=== PATIENT | female | born 2000 | race Caucasian/White ===

== ENCOUNTER 2024-07-29 00:03 | Emergency (ER) | payer MEDICAID ==
[2024-07-29] MEDS ORDERED: methylPREDNISolone Sodium Succinate 40 MG/1 ML SDV IVPUSH ONE (00:29)
[2024-07-29] MEDS ORDERED: Lactated Ringers 1,000 ML IV ONE (00:29)
[2024-07-29 00:41] LABS: APPEARANCE,URINE CLEAR (CLEAR); BILIRUBIN,URINE NEGATIVE (NEGATIVE); COLOR,URINE YELLOW (YELLOW); GLUCOSE,URINE NEGATIVE (NEGATIVE); KETONES,URINE NEGATIVE (NEGATIVE); LEUKOCYTE ESTERASE,URINE TRACE (NEGATIVE); NITRITE,URINE NEGATIVE (NEGATIVE); OCCULT BLOOD,URINE NEGATIVE (NEGATIVE); PH,URINE 7.5 (5.0-9.0); PROTEIN,URINE 30 (NEGATIVE)
[2024-07-29 01:29] LABS: BACTERIA,URINE FEW /HPF (0-FEW/HPF); MUCUS,URINE FEW /LPF (NOT SEEN); RBC,URINE 0-5 /HPF (0-5)
[2024-07-29 01:30] LABS: EPITHELIAL CELLS,URINE FEW /HPF (NOT SEEN)
== END 2024-07-29 01:19 | disposition home or self-care (01) ==
LOC: DL.ED 00:03
DX: J03.90 Acute tonsillitis, unspecified (principal); R10.9 Unspecified abdominal pain
CPT/HCPCS: 81001; 87086; 87088; 87186; 99283; 99284